=== PATIENT | male | born 1950 | race Caucasian/White ===

== ENCOUNTER → 2016-09-22 | Outpatient (CLI) | payer MEDICARE, OTHER ==
[~2016-09-22] VITALS: Ht 175.3 cm; Wt 70.3 kg
[~2016-09-22] MED LIST: ASPI1TAB PO; ATOR1TAB21 PO; CIAL5TAB PO; CICL8SOL TOP; CLAR10CA3 PO; CLEO1SOL TOP; CLON0.5T PO; ESZO1TAB3 PO; FISH100049 PO; LIDOCAINE 2% INJ 100 MG/5 ML SDV (FOR ANES.) As Ordered ONE; LUNE3TAB48 PO; MELO15TA4 PO; MULTCAP12 PO; NS 1,000 ML IV SCH; OMEP20CA3 PO; PROPOFOL 200 MG/20 ML VIAL As Ordered ONE; SUCR1TA PO; VITA100054 PO; ZANTTAB PO
--- NOTE | 2016-09-22 13:41 | ROOR ---
Patient Name: Rony Grimes Procedure Date: 09/22/2016 1:27 PM Date of : 1950 Age: 65 Room: [facility] Gender: Male Note Status: Finalized Procedure: Upper GI endoscopy + Biopsies Indications: Heartburn, Failure to respond to medical treatment Providers: Chance Benedict MD Referring MD: ZENAIDA ZARATE MD Requesting Provider: Medicines: Monitored Anesthesia Care Complications: No immediate complications. Procedure: Pre-Anesthesia Assessment: - The heart rate, respiratory rate, oxygen saturations, blood pressure, adequacy of pulmonary ventilation, and response to care were monitored throughout the procedure. The Endoscope was introduced through the mouth, and advanced to the second part of duodenum. The upper GI endoscopy was accomplished without difficulty. The patient tolerated the procedure well. Findings: The Z-line was variable and was found 40 cm from the incisors. Multiple biopsies were obtained with cold forceps for evaluation to rule out Asencio's Esophagus randomly at the gastroesophageal junction. A small hiatal hernia was present. Mucosal changes including ringed esophagus and longitudinal furrows were found in the middle third of the esophagus. Biopsies were taken with a cold forceps for histology. No other significant abnormalities were identified in a careful examination of the stomach. The exam of the duodenum was otherwise normal. Impression: - Z-line variable, 40 cm from the incisors. - Small hiatal hernia. - Esophageal mucosal changes suggestive of eosinophilic esophagitis. Biopsied. - Multiple biopsies were obtained at the gastroesophageal junction. - The examination was otherwise normal. Recommendation: - Await pathology results. - Discharge patient to home. - High fiber diet. - Follow an antireflux regimen. - Continue present medications. - Telephone GI clinic for pathology results in 1 week. - Return to referring physician. - The findings and recommendations were discussed with the patient's family. Chance Benedict MD Chance Benedict MD 09/22/2016 1:40:24 PM This report has been signed electronically. Number of Addenda: 0 Note Initiated On: 09/22/2016 1:27 PM Estimated Blood Loss: Estimated blood loss: none.
[2016-09-22 14:15] VITALS: BP 121/73
== END | disposition home or self-care (01) ==
LOC: M OPP 12:41
PROVIDERS: ATTEND Internal Medicine Gastroenterology
DX: K22.8 Other specified diseases of esophagus (principal); K44.9 Diaphragmatic hernia without obstruction or gangrene; K20.9 Esophagitis, unspecified; E78.5 Hyperlipidemia, unspecified; M19.90 Unspecified osteoarthritis, unspecified site; Z79.899 Other long term (current) drug therapy; Z79.82 Long term (current) use of aspirin

== ENCOUNTER → 2017-02-03 | Outpatient (REF) | payer MEDICARE, OTHER ==
[~2017-02-03] MED LIST changes: -LIDOCAINE 2% INJ 100 MG/5 ML SDV (FOR ANES.) As Ordered ONE; +LUNE3TAB36 PO; -LUNE3TAB48 PO; -NS 1,000 ML IV SCH; -PROPOFOL 200 MG/20 ML VIAL As Ordered ONE
[2017-02-03 13:23] LABS: ALBUMIN 4.2 GM/DL (3.2-5.2); ALKALINE PHOSPHATASE 85 U/L (45-117); ALT/SGPT 38 U/L (12-78); ANION GAP 8 MEQ/L (8-16); AST/SGOT 23 U/L (15-37); BILIRUBIN,TOTAL 0.7 MG/DL (0.2-1.0); BLOOD UREA NITROGEN 15 MG/DL (7-18); CALCIUM LEVEL 9.6 MG/DL (8.8-10.2); CARBON DIOXIDE LEVEL 31 MEQ/L (21-32); CHLORIDE LEVEL 103 MEQ/L (98-107); CHOLESTEROL LEVEL 157 MG/DL (<200); CREATININE FOR GFR 0.98 MG/DL (0.70-1.30); GLOMERULAR FILTRATION RATE > 60.0 (>49); GLUCOSE, FASTING 89 MG/DL (80-110); POTASSIUM SERUM 4.5 MEQ/L (3.5-5.1); SODIUM LEVEL 142 MEQ/L (136-145); TOTAL PROTEIN 7.7 GM/DL (6.4-8.2); TRIGLYCERIDES LEVEL 87 MG/DL (<150)
== END ==
LOC: M LABDRWAD 12:12
PROVIDERS: ATTEND Emergency Medicine
DX: E78.2 Mixed hyperlipidemia (principal)
CPT/HCPCS: 80053; 80061; G0103

== ENCOUNTER → 2018-01-20 | Outpatient (CLI) | payer MEDICARE, OTHER ==
[2018-01-20 12:36] LABS: BASO # 0.1 10^3/uL (0.0-0.2); BASO % 1.1 % (0.0-1.0); EOS # 0.5 10^3/uL (0.0-0.50); EOS % 8.8 % (0.0-3.0); HEMATOCRIT 38.9 % (42.0-52.0); HEMOGLOBIN 13.4 g/dl (13.5-17.5); IMMATURE GRANULOCYTE % 0.2 % (0-3.0); LYMPH # 1.9 10^3/uL (1.5-4.5); LYMPH % 34.4 % (24.0-44.0); MEAN CORPUSCULAR HEMOGLOBIN 31.6 pg (27.0-33.0); MEAN CORPUSCULAR HGB CONC 34.4 g/dl (32.0-36.5); MEAN CORPUSCULAR VOLUME 91.7 fl (80.0-96.0); MONO # 0.6 10^3/uL (0.0-0.8); NEUTROPHILS # 2.4 10^3/uL (1.8-7.7); NEUTROPHILS % 44.5 % (36.0-66.0); PLATELET COUNT, AUTOMATED 189 10^3/uL (150-450); RED BLOOD COUNT 4.24 10^6/uL (4.30-6.10); WHITE BLOOD COUNT 5.4 10^3/uL (4.0-10.0)
[2018-01-20 12:57] LABS: ALBUMIN 3.8 GM/DL (3.2-5.2); ALBUMIN/GLOBULIN RATIO 1.06 (1.00-1.93); ALKALINE PHOSPHATASE 110 U/L (45-117); ALT/SGPT 112 U/L (12-78); ANION GAP 6 MEQ/L (8-16); AST/SGOT 66 U/L (7-37); BILIRUBIN,TOTAL 0.7 MG/DL (0.2-1.0); BLOOD UREA NITROGEN 14 MG/DL (7-18); CALCIUM LEVEL 9.2 MG/DL (8.8-10.2); CARBON DIOXIDE LEVEL 32 MEQ/L (21-32); CHLORIDE LEVEL 105 MEQ/L (98-107); CHOLESTEROL LEVEL 146 MG/DL (<200); CHOLESTEROL RISK RATIO 3.173 (<5); CREATININE FOR GFR 1.06 MG/DL (0.70-1.30); GLOMERULAR FILTRATION RATE > 60.0 (>49); GLUCOSE, FASTING 84 MG/DL (70-100); HDL CHOLESTEROL 46 MG/DL (>40); NON-HDL-C 100 MG/DL; POTASSIUM SERUM 4.5 MEQ/L (3.5-5.1); SODIUM LEVEL 143 MEQ/L (136-145); TOTAL PROTEIN 7.4 GM/DL (6.4-8.2); TRIGLYCERIDES LEVEL 90 MG/DL (<150)
== END ==
LOC: M ADAMS 10:54
DX: E78.2 Mixed hyperlipidemia (principal); K22.70 Barrett's esophagus without dysplasia; Z12.5 Encounter for screening for malignant neoplasm of prostate
CPT/HCPCS: 80053

== ENCOUNTER → 2018-02-09 | Outpatient (REF) | payer MEDICARE, OTHER ==
[2018-02-09 20:12] LABS: TOTAL 25(OH) VITAMIN D 51.2 NG/ML (30.0-100.0)
== END ==
LOC: M LAB REF 10:27
DX: Z79.818 Long term (current) use of other agents affecting estrogen receptors and estrogen levels (principal)
CPT/HCPCS: 82306

== ENCOUNTER → 2019-05-23 | Outpatient (REF) | payer MEDICARE, OTHER ==
[~2019-05-23] MED LIST changes: -ASPI1TAB PO; +ASPI81TA26 PO; -CLON0.5T PO; +CLON0.5T8 PO; -ESZO1TAB3 PO; +ESZO1TAB6 PO; +MELO15TA28 PO; -MELO15TA4 PO; -OMEP20CA3 PO; +OMEP20CA4 PO; +ZANT150T40 PO; -ZANTTAB PO
[2019-05-23 12:49] LABS: ALBUMIN 3.7 GM/DL (3.2-5.2); BILIRUBIN,DIRECT 0.1 MG/DL (0.0-0.2); BILIRUBIN,TOTAL 0.7 MG/DL (0.2-1.0); TOTAL PROTEIN 7.5 GM/DL (6.4-8.2)
== END ==
LOC: M LABDRWAD 12:26
PROVIDERS: ATTEND Podiatrist
DX: Z51.81 Encounter for therapeutic drug level monitoring (principal)

== ENCOUNTER → 2019-06-08 | Outpatient (REF) | payer MEDICARE, OTHER ==
[~2019-06-08] MED LIST changes: +CLON0.5T2 PO; -CLON0.5T8 PO
[2019-06-08 13:21] LABS: HEMATOCRIT 38.6 % (42.0-52.0); HEMOGLOBIN 13.5 g/dl (13.5-17.5); MEAN CORPUSCULAR HEMOGLOBIN 33.6 pg (27.0-33.0); PLATELET COUNT, AUTOMATED 196 10^3/uL (150-450); RED BLOOD COUNT 4.02 10^6/uL (4.30-6.10); WHITE BLOOD COUNT 5.9 10^3/uL (4.0-10.0)
[2019-06-08 13:52] LABS: ALBUMIN 3.8 GM/DL (3.2-5.2); ALT/SGPT 29 U/L (12-78); BILIRUBIN,TOTAL 0.3 MG/DL (0.2-1.0); BLOOD UREA NITROGEN 16 MG/DL (7-18); CALCIUM LEVEL 8.7 MG/DL (8.8-10.2); CARBON DIOXIDE LEVEL 30 MEQ/L (21-32); CHLORIDE LEVEL 110 MEQ/L (98-107); CHOLESTEROL LEVEL 154 MG/DL (<200); CHOLESTEROL RISK RATIO 3.276 (<5); CREATININE FOR GFR 1.07 MG/DL (0.70-1.30); FREE T4 0.82 NG/DL (0.76-1.46); GLOMERULAR FILTRATION RATE > 60.0 (>49); GLUCOSE, FASTING 91 MG/DL (70-100); HDL CHOLESTEROL 47 MG/DL (>40); LDL CHOLESTEROL 88 MG/DL (<100); MAGNESIUM LEVEL 2.2 MG/DL (1.8-2.4); NON-HDL-C 107 MG/DL; POTASSIUM SERUM 4.7 MEQ/L (3.5-5.1); SODIUM LEVEL 144 MEQ/L (136-145); TRIGLYCERIDES LEVEL 96 MG/DL (<150)
== END ==
LOC: M SFHCADAM 08:02
PROVIDERS: ATTEND Family Medicine
DX: K22.70 Barrett's esophagus without dysplasia (principal); E78.5 Hyperlipidemia, unspecified; G25.81 Restless legs syndrome; Z12.5 Encounter for screening for malignant neoplasm of prostate
CPT/HCPCS: 80053; 80061; 83735; 84439; 84443; 85027; G0103

== ENCOUNTER → 2019-07-03 | Outpatient (CLI) | payer MEDICARE, OTHER ==
[~2019-07-03] MED LIST changes: +OMEP-172 PO; -OMEP20CA4 PO
[2019-07-03 17:23] LABS: ALBUMIN 3.8 GM/DL (3.2-5.2); BILIRUBIN,DIRECT 0.1 MG/DL (0.0-0.2); BILIRUBIN,TOTAL 0.5 MG/DL (0.2-1.0); TOTAL PROTEIN 7.5 GM/DL (6.4-8.2)
== END ==
LOC: M ADAMS 08:50
PROVIDERS: ATTEND Podiatrist
DX: Z51.81 Encounter for therapeutic drug level monitoring (principal)

== ENCOUNTER → 2019-07-04 | Outpatient (CLI) | payer MEDICARE, OTHER ==
--- NOTE | 2019-07-05 06:40 | ECHO ---
DATE OF PROCEDURE: 07/04/2019 Date of : 1950 Age: 68 REFERRING PHYSICIAN: Keyon Palacios MD REASON FOR ECHOCARDIOGRAM: Heart murmur. PATIENT LOCATION: Outpatient. 2D MEASUREMENTS: IVS: 1.4 cm LV: 3.8 cm LVPW: 1.2 cm LA: 3.2 cm Aorta: 3.3 cm DOPPLER MEASUREMENTS: Peak velocity across the aortic valve: 1.6 m/s Peak velocity across the LVOT: 0.9 m/s Mitral E: 0.90, Mitral A: 0.87 with a ratio of 1.0 Maximum tricuspid valve velocity: 2.4 m/s 2D COMMENTS: 1. Normal left ventricular size with probably mildly increased left ventricular wall thickness. Left ventricular systolic function is normal, estimated at 65-70%. 2. Normal left atrium. The right atrium appeared to be borderline enlarged in limited views. Normal right ventricle. 3. The atrial septum appeared to be normal without evidence of defect or shunt. 4. Normal aortic root. 5. Trace pericardial effusion noted, no evidence of cardiac tamponade. 6. Mildly calcified aortic valve with normal leaflet excursion. Normal mitral valve, tricuspid valve, and pulmonic valve. The proximal pulmonary artery branches were not well visualized. 7. The inferior vena cava was not well visualized. DOPPLER: Doppler detects trace aortic regurgitation, mild mitral regurgitation and mild tricuspid regurgitation. The calculated pulmonary artery systolic pressure varies between 30-40 mmHg. Assessment of the left ventricular diastolic function was not quite conclusive, may be normal. IMPRESSION 1. Normal global left ventricular systolic function with probably mild concentric left ventricular hypertrophy. Assessment of the left ventricular diastolic function was not quite conclusive. 2. Aortic valve sclerosis with trace aortic regurgitation but no aortic stenosis. 3. Mitral annulus calcification with mild mitral regurgitation. 4. Mild tricuspid regurgitation with probably mild pulmonary hypertension. 5. A trace pericardial effusion was noted, no evidence of cardiac tamponade. [facility]
== END ==
LOC: M CARPUL 08:03
PROVIDERS: ATTEND Family Medicine
DX: R01.1 Cardiac murmur, unspecified (principal)

== ENCOUNTER → 2020-01-16 | Outpatient (REF) | payer MEDICARE, OTHER ==
[~2020-01-16] MED LIST changes: +AMBI10TA PO; +FAMO1TAB25 PO; +MELA5CAP2 PO; +NORC1TAB7 PO; -OMEP-172 PO; +OMEP1CAP73 PO
[2020-01-16 13:35] LABS: BASO # 0.1 10^3/uL (0.0-0.2); EOS # 0.5 10^3/uL (0.0-0.5); EOS % 6.9 % (0.0-3.0); HEMATOCRIT 42.6 % (42.0-52.0); LYMPH % 28.8 % (24.0-44.0); MEAN CORPUSCULAR HEMOGLOBIN 31.5 pg (27.0-33.0); MEAN CORPUSCULAR HGB CONC 32.9 g/dl (32.0-36.5); MEAN CORPUSCULAR VOLUME 95.9 fl (80.0-96.0); MONO # 0.7 10^3/uL (0.0-0.8); MONO % 9.3 % (0.0-5.0); NEUTROPHILS # 3.8 10^3/uL (1.5-8.5); NEUTROPHILS % 53.7 % (36.0-66.0); PLATELET COUNT, AUTOMATED 232 10^3/uL (150-450); RED BLOOD COUNT 4.44 10^6/uL (4.30-6.10); WHITE BLOOD COUNT 7.1 10^3/uL (4.0-10.0)
[2020-01-16 14:42] LABS: ALT/SGPT 192 U/L (12-78); BILIRUBIN,TOTAL 0.8 MG/DL (0.2-1.0); BLOOD UREA NITROGEN 14 MG/DL (7-18); CALCIUM LEVEL 9.5 MG/DL (8.8-10.2); CARBON DIOXIDE LEVEL 32 MEQ/L (21-32); CHLORIDE LEVEL 104 MEQ/L (98-107); CREATININE FOR GFR 1.03 MG/DL (0.70-1.30); FREE T4 0.78 NG/DL (0.76-1.46); GLOMERULAR FILTRATION RATE > 60.0 (>42); GLUCOSE, FASTING 81 MG/DL (70-100); POTASSIUM SERUM 4.8 MEQ/L (3.5-5.1); SODIUM LEVEL 140 MEQ/L (136-145); TOTAL PROTEIN 7.8 GM/DL (6.4-8.2)
== END ==
LOC: M SFHCADAM 10:19
PROVIDERS: ATTEND Family Medicine
DX: R68.83 Chills (without fever) (principal)
CPT/HCPCS: 80053; 84439; 84443; 85025; G0463

== ENCOUNTER → 2020-01-17 | Outpatient (REF) | payer MEDICARE, OTHER ==
[2020-01-18 11:26] LABS: HEPATITIS B SURFACE ANTIBODY POSITIVE (POSITIVE)
[2020-01-18 17:32] LABS: ANTI-SMOOTH MUSCLE ANTIBODY 14 Units (0-19); LIVER-KIDNEY MICROSOMAL ABY <20.1 Units (0.0-20.0)
== END ==
LOC: M SFHCADAM 09:33
PROVIDERS: ATTEND Family Medicine
DX: R79.89 Other specified abnormal findings of blood chemistry (principal); Z79.82 Long term (current) use of aspirin; Z79.899 Other long term (current) drug therapy

== ENCOUNTER → 2020-02-02 | Outpatient (CLI) | payer MEDICARE, OTHER ==
[2020-03-02 11:10] LABS: HEMATOCRIT 37.4 % (42.0-52.0); HEMOGLOBIN 13.6 g/dl (13.5-17.5); MEAN CORPUSCULAR HEMOGLOBIN 35.6 pg (27.0-33.0); MEAN CORPUSCULAR HGB CONC 36.4 g/dl (32.0-36.5); MEAN CORPUSCULAR VOLUME 97.9 fl (80.0-96.0); PLATELET COUNT, AUTOMATED 259 10^3/uL (150-450); RED BLOOD COUNT 3.82 10^6/uL (4.30-6.10); WHITE BLOOD COUNT 6.3 10^3/uL (4.0-10.0)
[2020-03-11 10:55] LABS: ALBUMIN 3.9 GM/DL (3.2-5.2); ALT/SGPT 278 U/L (12-78); BILIRUBIN,TOTAL 1.5 MG/DL (0.2-1.0); BLOOD UREA NITROGEN 17 MG/DL (7-18); CALCIUM LEVEL 9.5 MG/DL (8.8-10.2); CARBON DIOXIDE LEVEL 32 MEQ/L (21-32); CHLORIDE LEVEL 103 MEQ/L (98-107); CREATININE FOR GFR 1.03 MG/DL (0.70-1.30); GLOMERULAR FILTRATION RATE > 60.0 (>42); GLUCOSE, FASTING 81 MG/DL (70-100); POTASSIUM SERUM 4.5 MEQ/L (3.5-5.1); SODIUM LEVEL 139 MEQ/L (136-145); TOTAL PROTEIN 7.9 GM/DL (6.4-8.2)
== END ==
LOC: M LAB 16:30 → M RAD 16:30
PROVIDERS: ATTEND Family Medicine
DX: I25.10 Atherosclerotic heart disease of native coronary artery without angina pectoris (principal); K80.50 Calculus of bile duct without cholangitis or cholecystitis without obstruction; K80.20 Calculus of gallbladder without cholecystitis without obstruction; R94.5 Abnormal results of liver function studies; M51.36 Other intervertebral disc degeneration, lumbar region; M51.37 Other intervertebral disc degeneration, lumbosacral region
CPT/HCPCS: 36415; 74176; 80053; 85027; G0463

== ENCOUNTER 2020-02-06 16:00 | Inpatient (IN) | payer MEDICARE, OTHER ==
[~2020-02-06 16:00] MED LIST changes: -AMBI10TA PO; -FAMO1TAB25 PO; -MELA5CAP2 PO; -NORC1TAB7 PO
[2020-02-06] MEDS ORDERED: KETOROLAC 30 MG/ML 1ML VIAL As Ordered ONE (18:30)
[2020-02-06] MEDS ORDERED: LORazepam 2 MG/ML VIAL ONE (23:04)
[2020-02-06] MEDS ORDERED: LORazepam 2 MG/ML VIAL As Ordered ONE (23:04)
[2020-02-07] MEDS ORDERED: SUCRALFATE 1 GM TAB ONE ×2 (08:06→22:26)
[2020-02-07] MEDS ORDERED: ENOXAPARIN 40MG/0.4ML SYRINGE (J1650 PER 10MG) ONE (08:06)
[2020-02-07] MEDS ORDERED: LORazepam 2 MG/ML VIAL ONE (15:31)
[2020-02-07] MEDS ORDERED: NALOXONE INJ 0.4MG/1ML VIAL (J2310 PER 1MG) ONE (16:34)
[2020-02-07] MEDS ORDERED: SUCRALFATE 1 GM TAB As Ordered ONE (22:26)
[2020-02-08] MEDS ORDERED: SUCRALFATE 1 GM TAB As Ordered ONE ×2 (09:33→20:04)
[2020-02-08] MEDS ORDERED: SUCRALFATE 1 GM TAB ONE ×2 (09:33→20:04)
[2020-02-08] MEDS ORDERED: ROCURONIUM BROMIDE 50 MG/5 ML VIAL As Ordered ONE (13:54)
[2020-02-08] MEDS ORDERED: MIDAZOLAM INJ 2MG/2ML VIAL (J2250 PER 1MG) As Ordered ONE (13:54)
[2020-02-08] MEDS ORDERED: propofoL 200 MG/20 ML VIAL As Ordered ONE (13:54)
[2020-02-08] MEDS ORDERED: fentaNYL 100 MCG/2 ML INJECTION (J3010) As Ordered ONE ×2 (13:54→15:58)
[2020-02-08] MEDS ORDERED: METOCLOPRAMIDE INJ 10MG/2ML VIAL (J2765 PER 1) As Ordered ONE (13:54)
[2020-02-08] MEDS ORDERED: ONDANSETRON 4MG/2ML VIAL As Ordered ONE (13:54)
[2020-02-08] MEDS ORDERED: LIDOCAINE 2% 100MG/5ML SDV (FOR ANES.) As Ordered ONE (13:54)
[2020-02-08] MEDS ORDERED: ISOVUE-300 61% 50ML VIAL As Ordered ONE ×3 (14:55→16:30)
[2020-02-08] MEDS ORDERED: PHENYLephrine HCL 500 MCG/5 ML (100MCG/ML) SYRINGE (J2370) As Ordered ONE (16:28)
[2020-02-08] MEDS ORDERED: MORPHINE 2 MG/ML 1ML VIAL (J2270) As Ordered ONE (22:06)
[2020-02-08] MEDS ORDERED: MORPHINE 2 MG/ML 1ML VIAL (J2270) ONE (22:06)
[2020-02-09] MEDS ORDERED: MORPHINE 2 MG/ML 1ML VIAL (J2270) ONE (03:52)
[2020-02-09] MEDS ORDERED: MORPHINE 2 MG/ML 1ML VIAL (J2270) As Ordered ONE (03:52)
[2020-02-09] MEDS ORDERED: ATORVASTATIN 10 MG TAB ONE (10:07)
[2020-02-09] MEDS ORDERED: SUCRALFATE 1 GM TAB ONE ×2 (10:07→20:07)
[2020-02-09] MEDS ORDERED: SUCRALFATE 1 GM TAB As Ordered ONE ×2 (10:07→20:07)
[2020-02-09] MEDS ORDERED: MULTIVITAMINS/MINERALS THERAP 1 TAB As Ordered ONE (10:07)
[2020-02-09] MEDS ORDERED: OMEPRAZOLE 20 MG CAP As Ordered ONE ×2 (10:07→20:07)
[2020-02-09] MEDS ORDERED: ATORVASTATIN 10 MG TAB As Ordered ONE (10:07)
[2020-02-09] MEDS ORDERED: MULTIVITAMINS/MINERALS THERAP 1 TAB ONE (10:07)
[2020-02-09] MEDS ORDERED: OMEPRAZOLE 20 MG CAP ONE ×2 (10:07→20:07)
[2020-02-09] MEDS ORDERED: LORATADINE 10 MG TAB As Ordered ONE (10:07)
[2020-02-09] MEDS ORDERED: traMADol 50 MG TAB As Ordered ONE ×2 (11:18→23:32)
[2020-02-09] MEDS ORDERED: traMADol 50 MG TAB ONE ×3 (11:18→23:32)
[2020-02-09] MEDS ORDERED: SIMETHICONE 80 MG CHEW TAB ONE ×2 (15:31→20:07)
[2020-02-09] MEDS ORDERED: SIMETHICONE 80 MG CHEW TAB As Ordered ONE ×2 (15:31→20:07)
[2020-02-10] MEDS ORDERED: traMADol 50 MG TAB As Ordered ONE (05:30)
[2020-02-10] MEDS ORDERED: traMADol 50 MG TAB ONE (05:30)
[2020-02-10] MEDS ORDERED: MULTIVITAMINS/MINERALS THERAP 1 TAB As Ordered ONE (10:12)
[2020-02-10] MEDS ORDERED: MULTIVITAMINS/MINERALS THERAP 1 TAB ONE (10:12)
[2020-02-10] MEDS ORDERED: LORATADINE 10 MG TAB As Ordered ONE (10:13)
[2020-02-10] MEDS ORDERED: OMEPRAZOLE 20 MG CAP As Ordered ONE (10:13)
[2020-02-10] MEDS ORDERED: OMEPRAZOLE 20 MG CAP ONE (10:13)
[2020-02-10] MEDS ORDERED: SUCRALFATE 1 GM TAB As Ordered ONE (10:13)
[2020-02-10] MEDS ORDERED: SUCRALFATE 1 GM TAB ONE (10:13)
[2020-02-10] MEDS ORDERED: ATORVASTATIN 10 MG TAB As Ordered ONE (10:13)
[2020-03-20] MEDS ORDERED: FAMO1TAB25 PO (09:58)
[2020-03-20] MEDS ORDERED: MELA5CAP2 PO (09:58)
[2020-03-20] MEDS ORDERED: AMBI10TA PO (09:58)
[2020-03-27 14:26] LABS: BASO % 0.4 % (0.0-1.0); EOS # 0.3 10^3/uL (0.0-0.5); EOS % 2.8 % (0.0-3.0); HEMATOCRIT 38.1 % (42.0-52.0); HEMOGLOBIN 12.6 g/dl (13.5-17.5); INR 1.18; LYMPH # 1.8 10^3/uL (1.5-5.0); LYMPH % 15.8 % (24.0-44.0); MEAN CORPUSCULAR HEMOGLOBIN 30.4 pg (27.0-33.0); MEAN CORPUSCULAR HGB CONC 33.1 g/dl (32.0-36.5); MONO # 0.9 10^3/uL (0.0-0.8); MONO % 8.4 % (0.0-5.0); NEUTROPHILS # 8.1 10^3/uL (1.5-8.5); NEUTROPHILS % 72.2 % (36.0-66.0); PARTIAL THROMBOPLASTIN TIME 31.2 SECONDS (24.2-38.5); PLATELET COUNT, AUTOMATED 257 10^3/uL (150-450); PROTHROMBIN TIME 15.3 SECONDS (12.5-14.3); RED BLOOD COUNT 4.14 10^6/uL (4.30-6.10); WHITE BLOOD COUNT 11.3 10^3/uL (4.0-10.0)
[2020-03-29 01:12] LABS: INR 0.99; PROTHROMBIN TIME 13.2 SECONDS (12.5-14.3)
[2020-03-29 01:30] LABS: MEAN CORPUSCULAR HEMOGLOBIN 30.6 pg (27.0-33.0); MEAN CORPUSCULAR HGB CONC 32.6 g/dl (32.0-36.5); MEAN CORPUSCULAR VOLUME 93.9 fl (80.0-96.0); PLATELET COUNT, AUTOMATED 271 10^3/uL (150-450); WHITE BLOOD COUNT 8.8 10^3/uL (4.0-10.0)
[2020-03-29 02:25] LABS: APPEARANCE, URINE CLEAR (CLEAR); BACTERIA, URINE AUTO NEGATIVE (NEGATIVE); BILIRUBIN, URINE AUTO NEGATIVE (NEGATIVE); BLOOD, URINE BLOOD NEGATIVE (NEGATIVE); COLOR, URINE AMBER (YELLOW); GLUCOSE, URINE (UA) AUTO NEGATIVE (NEGATIVE); KETONE, URINE AUTO NEGATIVE (NEGATIVE); LEUKOCYTE ESTERASE, URINE AUTO NEGATIVE (NEGATIVE); MUCUS, URINE SMALL (NEGATIVE); NITRITE, URINE AUTO NEGATIVE (NEGATIVE); PROTEIN, URINE AUTO NEGATIVE (NEGATIVE); RBC, URINE AUTO 6 /HPF (0-3); SQUAMOUS EPITHELIAL CELL UR AU 0 /HPF (0-6); WBC, URINE AUTO 0 /HPF (0-3)
--- NOTE | 2020-03-30 14:04 | REP ---
ERCP- 168 VIEWS: HISTORY: Cholodocholithiasis. COMPARISON: None. 21 minutes 9 seconds of fluoroscopy time is reported. FINDINGS: 168 last image hold fluoroscopically obtained spot radiographs document endoscopic cannulation, contrast injection, guidewire and basket and balloon catheter manipulation and stenting of the common bile duct. Initial images with contrast demonstrates a filling defect in the distal choledochus, consistent with cholodocholithiasis. MTDD
[2020-04-07 07:23] LABS: INR 1.14; PARTIAL THROMBOPLASTIN TIME 33.2 SECONDS (24.2-38.5); PROTHROMBIN TIME 14.9 SECONDS (12.5-14.3)
[2020-04-07 09:06] LABS: BASO % 0.7 % (0.0-1.0); EOS # 0.4 10^3/uL (0.0-0.5); EOS % 6.7 % (0.0-3.0); HEMATOCRIT 37.1 % (42.0-52.0); HEMOGLOBIN 13.1 g/dl (13.5-17.5); LYMPH # 1.5 10^3/uL (1.5-5.0); LYMPH % 25.2 % (24.0-44.0); MEAN CORPUSCULAR HEMOGLOBIN 35.1 pg (27.0-33.0); MEAN CORPUSCULAR HGB CONC 35.3 g/dl (32.0-36.5); MEAN CORPUSCULAR VOLUME 99.5 fl (80.0-96.0); MONO # 0.7 10^3/uL (0.0-0.8); MONO % 11.4 % (0.0-5.0); NEUTROPHILS # 3.2 10^3/uL (1.5-8.5); NEUTROPHILS % 55.7 % (36.0-66.0); PLATELET COUNT, AUTOMATED 243 10^3/uL (150-450); RED BLOOD COUNT 3.73 10^6/uL (4.30-6.10); WHITE BLOOD COUNT 5.8 10^3/uL (4.0-10.0)
[2020-04-15 15:17] LABS: HEMATOCRIT 38.4 % (42.0-52.0); HEMOGLOBIN 13.2 g/dl (13.5-17.5); MEAN CORPUSCULAR HEMOGLOBIN 33.1 pg (27.0-33.0); MEAN CORPUSCULAR HGB CONC 34.4 g/dl (32.0-36.5); MEAN CORPUSCULAR VOLUME 96.2 fl (80.0-96.0); PLATELET COUNT, AUTOMATED 239 10^3/uL (150-450); RED BLOOD COUNT 3.99 10^6/uL (4.30-6.10); WHITE BLOOD COUNT 7.4 10^3/uL (4.0-10.0)
[2020-04-15 15:18] LABS: INR 1.06; PARTIAL THROMBOPLASTIN TIME 30.2 SECONDS (24.2-38.5)
[2020-04-16 01:20] LABS: ALBUMIN 4.1 GM/DL (3.2-5.2); ALT/SGPT 275 U/L (12-78); AMYLASE 97 U/L (25-115); BILIRUBIN,TOTAL 2.1 MG/DL (0.2-1.0); BLOOD UREA NITROGEN 13 MG/DL (7-18); CALCIUM LEVEL 9.7 MG/DL (8.8-10.2); CARBON DIOXIDE LEVEL 29 MEQ/L (21-32); CHLORIDE LEVEL 107 MEQ/L (98-107); GLOMERULAR FILTRATION RATE > 60.0 (>42); GLUCOSE, FASTING 95 MG/DL (70-100); LIPASE 313 U/L (73-393); POTASSIUM SERUM 4.1 MEQ/L (3.5-5.1); SODIUM LEVEL 141 MEQ/L (136-145); TOTAL PROTEIN 8.1 GM/DL (6.4-8.2)
[2020-04-30 10:03] LABS: ALBUMIN 3.1 GM/DL (3.2-5.2); ALT/SGPT 109 U/L (12-78); BLOOD UREA NITROGEN 16 MG/DL (7-18); CALCIUM LEVEL 8.7 MG/DL (8.8-10.2); CARBON DIOXIDE LEVEL 31 MEQ/L (21-32); CHLORIDE LEVEL 105 MEQ/L (98-107); CREATININE FOR GFR 0.81 MG/DL (0.70-1.30); GLOMERULAR FILTRATION RATE > 60.0 (>42); GLUCOSE, FASTING 91 MG/DL (70-100); POTASSIUM SERUM 4.1 MEQ/L (3.5-5.1); SODIUM LEVEL 137 MEQ/L (136-145); TOTAL PROTEIN 6.6 GM/DL (6.4-8.2)
[2020-05-01 11:08] LABS: ALBUMIN 3.6 GM/DL (3.2-5.2); ALT/SGPT 251 U/L (12-78); BILIRUBIN,DIRECT 2.2 MG/DL (0.0-0.2); BILIRUBIN,TOTAL 3.3 MG/DL (0.2-1.0); BLOOD UREA NITROGEN 11 MG/DL (7-18); CARBON DIOXIDE LEVEL 31 MEQ/L (21-32); CHLORIDE LEVEL 105 MEQ/L (98-107); CREATININE FOR GFR 0.98 MG/DL (0.70-1.30); GLOMERULAR FILTRATION RATE > 60.0 (>42); GLUCOSE, FASTING 95 MG/DL (70-100); HEPATITIS A ANTIBODY IGM NEGATIVE (NEGATIVE); HEPATITIS B CORE ANTIBODY IGM NEGATIVE (NEGATIVE); HEPATITIS B SURFACE ANTIGEN NEGATIVE (NEGATIVE); HEPATITIS C VIRUS ABY INDEX 0.2 INDEX (<0.8); POTASSIUM SERUM 4.1 MEQ/L (3.5-5.1); SODIUM LEVEL 138 MEQ/L (136-145); TOTAL PROTEIN 7.5 GM/DL (6.4-8.2)
[2020-05-02 16:19] LABS: ALBUMIN 3.3 GM/DL (3.2-5.2); ALT/SGPT 188 U/L (12-78); BILIRUBIN,DIRECT 0.6 MG/DL (0.0-0.2); BILIRUBIN,TOTAL 1.5 MG/DL (0.2-1.0); BLOOD UREA NITROGEN 9 MG/DL (7-18); CALCIUM LEVEL 8.9 MG/DL (8.8-10.2); CARBON DIOXIDE LEVEL 30 MEQ/L (21-32); CHLORIDE LEVEL 107 MEQ/L (98-107); CREATININE FOR GFR 0.77 MG/DL (0.70-1.30); GLOMERULAR FILTRATION RATE > 60.0 (>42); GLUCOSE, FASTING 74 MG/DL (70-100); POTASSIUM SERUM 4.1 MEQ/L (3.5-5.1); SODIUM LEVEL 139 MEQ/L (136-145); TOTAL PROTEIN 7.1 GM/DL (6.4-8.2)
== END 2020-02-10 10:10 | disposition home or self-care (01) | DRG 446 ==
LOC: M ED 16:00 → M MS5PR 20:20
PROVIDERS: ADMIT Internal Medicine; ATTEND Internal Medicine
PROC: 0FC98ZZ Extirpation of Matter from Common Bile Duct, Via Natural or Artificial Opening Endoscopic (ICD-10-PCS; principal; 2020-02-08)
DX: K80.63 Calculus of gallbladder and bile duct with acute cholecystitis with obstruction (principal); K21.9 Gastro-esophageal reflux disease without esophagitis; N40.0 Benign prostatic hyperplasia without lower urinary tract symptoms; E78.5 Hyperlipidemia, unspecified; Z79.899 Other long term (current) drug therapy; F41.9 Anxiety disorder, unspecified; G47.00 Insomnia, unspecified

== ENCOUNTER → 2020-03-24 | Outpatient (CLI) | payer MEDICARE, OTHER ==
[~2020-03-24] MED LIST changes: +AMBI10TA PO; +FAMO1TAB25 PO; +MELA5CAP2 PO; +NORC1TAB7 PO
--- NOTE | 2020-03-24 16:47 | ECGEPIP ---
[facility] Test Date: 2020-03-24 Pat Name: ZORA COREAS Department: Room: - Gender: Male [employer] Technician: TERRI : 1950 Requested By: Alex Acosta Order Number: [id number] Reading MD: Claudio Dong Measurements Intervals Tyler Rate: 64 P: 60 HI: 181 QRS: -22 QRSD: 108 T: 0 QT: 386 QTc: 401 Interpretive Statements SINUS RHYTHM BORDERLINE LEFT AXIS DEVIATION POSSIBLE RIGHT VENTRICULAR CONDUCTION DELAY Comparison tracing not on file Electronically Signed on 03-24-2020 16:46:59 EDT by Claudio Dong
== END ==
LOC: M EKG 09:33
PROVIDERS: ATTEND Anesthesiology
DX: Z01.818 Encounter for other preprocedural examination (principal)

== ENCOUNTER → 2020-03-29 | Outpatient (CLI) | payer MEDICARE, OTHER | LOC: M LABSMTC 09:46 | PROVIDERS: ATTEND Anesthesiology | DX: Z01.812 Encounter for preprocedural laboratory examination (principal); Z20.828 Contact with and (suspected) exposure to other viral communicable diseases | CPT/HCPCS: C9803; U0003 ==

== ENCOUNTER 2020-04-03 06:12 | Day surgery (SDC) | payer MEDICARE, OTHER ==
[~2020-04-03] VITALS: Ht 175.3 cm; Wt 72.6 kg
[~2020-04-03 06:12] MED LIST changes: -NORC1TAB7 PO
[2020-04-03] MEDS ORDERED: MIDAZOLAM INJ 2MG/2ML VIAL (J2250 PER 1MG) As Ordered ONE (06:57)
[2020-04-03] MEDS ORDERED: propofoL 200 MG/20 ML VIAL As Ordered ONE (07:00)
[2020-04-03] MEDS ORDERED: LR 1,000 ML IV ONE (07:00)
[2020-04-03] MEDS ORDERED: fentaNYL 100 MCG/2 ML INJECTION (J3010) As Ordered ONE (07:01)
[2020-04-03] MEDS ORDERED: LIDOCAINE 2% 100MG/5ML SDV (FOR ANES.) As Ordered ONE (07:02)
[2020-04-03] MEDS ORDERED: ROCURONIUM BROMIDE 50 MG/5 ML VIAL As Ordered ONE (07:04)
[2020-04-03] MEDS ORDERED: BUPIVACAINE HCL 0.25% 30ML VIAL As Ordered ONE (07:10)
[2020-04-03] MEDS ORDERED: dexameTHASONE 4 MG/ML 1ML VIAL (J1100 PER 1MG) As Ordered ONE (07:12)
[2020-04-03] MEDS ORDERED: SUGAMMADEX SODIUM 500 MG/5 ML VIAL (BRIDION) As Ordered ONE (07:13)
[2020-04-03] MEDS ORDERED: ONDANSETRON 4MG/2ML VIAL As Ordered ONE (07:13)
[2020-04-03] MEDS ORDERED: METOCLOPRAMIDE INJ 10MG/2ML VIAL (J2765 PER 1) As Ordered ONE (07:13)
[2020-04-03] MEDS ORDERED: ACETAMINOPHEN 1000MG 100ML IV BTL (OFIRMEV) (J0131 PER 10MG) As Ordered ONE (08:45)
[2020-04-03] MEDS ORDERED: HYDROmorphone HCL 2 MG/ML 1ML VIAL (J1170) As Ordered ONE (09:04)
[2020-04-03] MEDS ORDERED: NORC1TAB7 PO (09:35)
[2020-04-03] MEDS ORDERED: ONDANSETRON 4MG/2ML VIAL IV PRN (10:00)
[2020-04-03] MEDS ORDERED: MEPERIDINE INJ 25 MG/ML VIAL (J2175) IV PRN (10:00)
[2020-04-03] MEDS ORDERED: LR 1,000 ML IV SCH (10:00)
[2020-04-03] MEDS ORDERED: fentaNYL 100 MCG/2 ML INJECTION (J3010) IV PRN (10:00)
[2020-04-03] MEDS ORDERED: METOCLOPRAMIDE INJ 10MG/2ML VIAL (J2765 PER 1) IV PRN (10:00)
[2020-04-03] MEDS: oxyCODONE 5MG TAB PO PRN ×2 (10:03→10:45)
[2020-04-03] MEDS ORDERED: IBUPROFEN 400 MG TAB PO PRN (11:00)
[2020-04-03] MEDS ORDERED: NORCO, ANEXSIA 5/325MG TABLET (HYDROcodone/ACETAMINOPHEN) PO PRN (11:00)
[2020-04-03] MEDS ORDERED: ACETAMINOPHEN TAB 650MG DOSE (2X325MG) PO PRN (11:00)
[2020-04-03 11:45] VITALS: BP 142/75
--- NOTE | 2020-04-10 14:41 | RO ---
DATE OF OPERATION: 04/03/2020 PREOPERATIVE DIAGNOSIS: Cholelithiasis with recent choledocholithiasis. POSTOPERATIVE DIAGNOSIS: Cholelithiasis with recent choledocholithiasis. PROCEDURE PERFORMED: Robotic-assisted laparoscopic cholecystectomy. SURGEON: Eric Palafox MD HEALTH COMMISSIONER: HONG Gaona (Garry assistance was necessary for management of the da Jason Xi with placement of trocars, exchange of instruments, passage of the specimen retrieval bag and closure of the incisions). ANESTHESIA: General. INDICATIONS FOR THE PROCEDURE: The patient is a 69-year-old man who has recent history of elevated liver function tests which led to diagnosis of choledocholithiasis. He underwent ERCP with placement of a stent. He is now for a laparoscopic cholecystectomy for gallstones. OPERATIVE PROCEDURE: The patient was brought to the operating room and placed on the table in supine position. He was placed under general anesthesia. The patients abdomen was prepped and draped in sterile fashion. 0.25% Marcaine was infiltrated at the trocar sites as needed. A short transverse incision was made in the left upper quadrant. A Veress needle was inserted and after positive hanging drop test the abdomen was inflated with CO2 gas. An 8 mm port was placed over a 5 mm scope and advanced through the abdominal wall without difficulty. Initial examination showed normal appearing anterior wall of the stomach. The liver appeared normal. The gallbladder appeared somewhat thick walled and perhaps mildly dilated. Visualized portions of the small and large bowel were normal. A second 8 mm port was placed just above the umbilicus and two additional 8 mm ports were placed in the right lower quadrant. The da Jason Xi patient cart was brought into position and the endoscope port was docked to the supraumbilical site. Targeting took place on the region of the gallbladder and the other robotic arms were then docked to the appropriate ports. The patient had been tilted to slight reverse Trendelenburg position and rolled ever so slightly to the left just before docking. A right angle hook was placed in the left upper quadrant and fenestrated bipolar and grasping retractor were placed in the right lower quadrant. I then moved to the control console to begin the robotic portion of the procedure. The gallbladder was grasped and elevated. There did appear to be some slight thickening of the tissues around the gallbladder neck. The peritoneum was scored by the gallbladder neck. Dissection was carried through the pericholecystic tissues. The cystic duct was clearly identified and was dissected circumferentially. There was a small arterial branch noted just adjacent to the superior aspect of the cystic duct. A second arterial branch was identified slightly higher and along the medial wall of the gallbladder. This was clipped and divided. The cystic duct and the remaining artery were then also clipped with Hem-o-devon clips and divided. The gallbladder was then dissected free from the gallbladder bed using cautery dissection. The gallbladder was placed in an Endopouch. The right upper quadrant was inspected. A minimal amount of blood was absorbed into a Cottonoid and this was then removed. Final inspection showed no evidence of bleeding or bile leak. I then returned to the patients bedside. The robot was undocked and the instruments removed. The patient was returned to a flat position. The abdomen was deflated and the trocars were removed. The gallbladder was recovered through the supraumbilical site. It was necessary to extent the fascial incision slightly to accomplish this. The fascia was then closed with interrupted simple sutures of 2-0 Vicryl. The gallbladder clearly contained several angular stones 1 cm to 1.5 cm in size. The skin incisions were all closed with buried 4-0 Vicryl and Steri- Strips. Light dressings were applied. The patient tolerated the procedure well. He was awakened in the operating room, extubated and moved to the recovery room in stable condition. JAYLENE
== END 2020-04-03 11:45 | disposition home or self-care (01) ==
LOC: M SDC 06:12
PROVIDERS: ATTEND Surgery
DX: K80.10 Calculus of gallbladder with chronic cholecystitis without obstruction (principal); E78.5 Hyperlipidemia, unspecified; K44.9 Diaphragmatic hernia without obstruction or gangrene; K21.9 Gastro-esophageal reflux disease without esophagitis; F41.9 Anxiety disorder, unspecified; Z79.82 Long term (current) use of aspirin; Z79.899 Other long term (current) drug therapy
CPT/HCPCS: 47562; 88304; J0131; J1100; J2250; J2405; J2765; J3010; S2900

== ENCOUNTER → 2020-06-03 | Outpatient (CLI) | payer MEDICARE, OTHER ==
[~2020-06-03] MED LIST changes: +CICL8SOL3; +CLIN1SOL; +D31000TA2 PO; +ESSETAB4 PO; +FLAX10008 PO; +NORC1TAB7 PO; +OMEP-218
== END ==
LOC: M LABSMTC 08:24
PROVIDERS: ATTEND Anesthesiology
DX: Z01.812 Encounter for preprocedural laboratory examination (principal); Z20.828 Contact with and (suspected) exposure to other viral communicable diseases

== ENCOUNTER 2020-06-08 11:03 | Day surgery (SDC) | payer MEDICARE, OTHER ==
[~2020-06-08] VITALS: Ht 175.3 cm; Wt 74.4 kg
[~2020-06-08 11:03] MED LIST changes: +LR 1,000 ML IV ONE; +NS 1,000 ML IV ONE
[2020-06-08] MEDS ORDERED: CARA1TAB6 PO (11:19)
[2020-06-08] MEDS ORDERED: MIDAZOLAM INJ 2MG/2ML VIAL (J2250 PER 1MG) As Ordered ONE (14:02)
[2020-06-08] MEDS ORDERED: ROCURONIUM BROMIDE 50 MG/5 ML VIAL As Ordered ONE (14:02)
[2020-06-08] MEDS ORDERED: fentaNYL 100 MCG/2 ML INJECTION (J3010) As Ordered ONE (14:02)
[2020-06-08] MEDS ORDERED: LIDOCAINE 2% 100MG/5ML SDV (FOR ANES.) As Ordered ONE (14:02)
[2020-06-08] MEDS ORDERED: propofoL 200 MG/20 ML VIAL As Ordered ONE (14:03)
[2020-06-08] MEDS ORDERED: ONDANSETRON 4MG/2ML VIAL As Ordered ONE (14:03)
[2020-06-08] MEDS ORDERED: dexameTHASONE 4 MG/ML 1ML VIAL (J1100 PER 1MG) As Ordered ONE (14:03)
[2020-06-08] MEDS ORDERED: ISOVUE-300 61% 50ML VIAL As Ordered ONE (14:31)
[2020-06-08] MEDS ORDERED: PHENYLephrine HCL 500 MCG/5 ML (100MCG/ML) SYRINGE (J2370) As Ordered ONE (15:46)
[2020-06-08] MEDS ORDERED: SUGAMMADEX SODIUM 500 MG/5 ML VIAL (BRIDION) As Ordered ONE (15:54)
--- NOTE | 2020-06-08 16:25 | ROOR ---
Patient Name: Rony Grimes Procedure Date: 06/08/2020 2:28 PM Date of : 1950 Age: 69 Room: Main OR Gender: Male Note Status: Finalized Procedure: ERCP Indications: Bile duct stone(s), Biliary stent removal Providers: Claudio CALVIN MD Referring MD: Keyon Palacios MD Requesting Provider: Medicines: Monitored Anesthesia Care, General Anesthesia Complications: No immediate complications. Procedure: Pre-Anesthesia Assessment: - The heart rate, respiratory rate, oxygen saturations, blood pressure, adequacy of pulmonary ventilation, and response to care were monitored throughout the procedure. The Duodenoscope was introduced through the mouth, and advanced to the duodenum and used to inject contrast into the bile duct. The ERCP was accomplished without difficulty. The patient tolerated the procedure well. Findings: A biliary stent was visible on the financial cost analyst film. The esophagus was successfully intubated under direct vision without detailed examination of the pharynx, larynx, and associated structures, and upper GI tract. The upper GI tract was grossly normal. One temporary stent originating in the biliary tree was emerging from the major papilla. One stent was removed from the biliary tree using a snare. The major papilla was open from a previous sphincterotomy. A wire was passed into the biliary tree. The bile duct was then deeply cannulated over the guidewire. Contrast was injected. I personally interpreted the bile duct images. Ductal flow of contrast was adequate. Image quality was adequate. Opacification of the entire biliary tree except for the gallbladder was successful. The maximum diameter of the ducts was 9 mm. The lower third of the main bile duct contained two stones, the largest of which was 9 mm in diameter. The biliary tree was swept with a 9 mm balloon starting at the bifurcation. One stone was removed. One stone remained. The biliary sphincterotomy was extended to a total of 9 mm in length with a traction (standard) sphincterotome using ERBE electrocautery. There was no post-sphincterotomy bleeding. The biliary tree was swept with a 9 mm balloon starting at the bifurcation. All stones were removed. Impression: - One stent was removed from the biliary tree. - Choledocholithiasis was found. - A biliary sphincterotomy was performed. - The biliary tree was swept with a 9-12 mm balloon. - Complete removal of both stones was successful. All stones were removed. Recommendation: - Observe patient's clinical course. - Patient has a contact number available for emergencies. The signs and symptoms of potential delayed complications were discussed with the patient. Return to normal activities tomorrow. Written discharge instructions were provided to the patient. - The patient will be observed post-procedure, until all discharge criteria are met. - Discharge patient to home. Procedure Code(s): --- Professional --- 33445, Endoscopic retrograde cholangiopancreatography (ERCP); with removal of foreign body(s) or stent(s) from biliary/pancreatic duct(s) 89669, Endoscopic retrograde cholangiopancreatography (ERCP); with removal of calculi/debris from biliary/pancreatic duct(s) 22600, Endoscopic retrograde cholangiopancreatography (ERCP); with sphincterotomy/papillotomy Diagnosis Code(s): --- Professional --- K83.8, Other specified diseases of biliary tract Z46.59, Encounter for fitting and adjustment of other gastrointestinal appliance and device K80.50, Calculus of bile duct without cholangitis or cholecystitis without obstruction Z96.89, Presence of other specified functional implants CPT copyright 2019 [employer]. All rights reserved. The codes documented in this report are preliminary and upon auditing coder review may be revised to meet current compliance requirements. Claudio Calvin MD Claudio CALVIN MD 06/08/2020 4:25:31 PM Electronically signed by Claudio CALVIN MD Number of Addenda: 0 Note Initiated On: 06/08/2020 2:28 PM Estimated Blood Loss: Estimated blood loss: none.
[2020-06-08] MEDS ORDERED: METOCLOPRAMIDE INJ 10MG/2ML VIAL (J2765 PER 1) IV PRN (16:30)
[2020-06-08] MEDS ORDERED: fentaNYL 100 MCG/2 ML INJECTION (J3010) IV PRN (16:30)
[2020-06-08] MEDS ORDERED: LR 1,000 ML IV SCH (16:30)
[2020-06-08] MEDS ORDERED: ONDANSETRON 4MG/2ML VIAL IV PRN (16:30)
[2020-06-08] MEDS ORDERED: oxyCODONE 5MG TAB PO PRN (16:30)
--- NOTE | 2020-06-08 16:36 | REP ---
INDICATION: COMMON BILE DUCT STONE,STENT REMOVAL. COMPARISON: None. TECHNIQUE: Seventeen views. 4 minutes 2 seconds of fluoroscopy time is reported. FINDINGS: A sequence of 17 last image hold fluoroscopically obtained spot radiographs of the abdomen document endoscopic cannulation, contrast injection of the common bile duct. No definite biliary tract abnormality. IMPRESSION: ERCP procedural imaging. <Electronically signed by Arthur Gentile > 06/08/20 0551
[2020-06-08 17:30] VITALS: BP 160/78
== END 2020-06-08 17:50 | disposition home or self-care (01) ==
LOC: M SDC 11:03
PROVIDERS: ATTEND Internal Medicine Gastroenterology
DX: K80.50 Calculus of bile duct without cholangitis or cholecystitis without obstruction (principal); Z96.89 Presence of other specified functional implants; K83.8 Other specified diseases of biliary tract; Z46.59 Encounter for fitting and adjustment of other gastrointestinal appliance and device; E78.5 Hyperlipidemia, unspecified; R01.1 Cardiac murmur, unspecified; K21.9 Gastro-esophageal reflux disease without esophagitis; K44.9 Diaphragmatic hernia without obstruction or gangrene; F41.9 Anxiety disorder, unspecified; N40.0 Benign prostatic hyperplasia without lower urinary tract symptoms; Z79.82 Long term (current) use of aspirin; Z79.899 Other long term (current) drug therapy
CPT/HCPCS: 43262; 43264; 43275; 74330; J1100; J2250; J2370; J2405; J3010; Q9967

== ENCOUNTER → 2020-06-18 | Outpatient (REF) | payer MEDICARE, OTHER ==
[~2020-06-18] MED LIST changes: +CARA1TAB6 PO; -LR 1,000 ML IV ONE; -NS 1,000 ML IV ONE
[2020-06-18 14:59] LABS: HEMATOCRIT 39.5 % (42.0-52.0); MEAN CORPUSCULAR HEMOGLOBIN 33.7 pg (27.0-33.0); MEAN CORPUSCULAR HGB CONC 35.4 g/dl (32.0-36.5); PLATELET COUNT, AUTOMATED 246 10^3/uL (150-450); RED BLOOD COUNT 4.16 10^6/uL (4.30-6.10); WHITE BLOOD COUNT 5.6 10^3/uL (4.0-10.0)
[2020-06-18 15:34] LABS: ALBUMIN 3.7 GM/DL (3.2-5.2); ALT/SGPT 39 U/L (12-78); BILIRUBIN,TOTAL 0.4 MG/DL (0.2-1.0); BLOOD UREA NITROGEN 10 MG/DL (7-18); CALCIUM LEVEL 9.2 MG/DL (8.8-10.2); CARBON DIOXIDE LEVEL 33 MEQ/L (21-32); CHLORIDE LEVEL 106 MEQ/L (98-107); CHOLESTEROL LEVEL 160 MG/DL (<200); CREATININE FOR GFR 1.07 MG/DL (0.70-1.30); FREE T4 0.76 NG/DL (0.76-1.46); GLOMERULAR FILTRATION RATE > 60.0 (>42); GLUCOSE, FASTING 91 MG/DL (70-100); HDL CHOLESTEROL 38 MG/DL (>40); LDL CHOLESTEROL 99 MG/DL (<100); NON-HDL-C 122 MG/DL; POTASSIUM SERUM 4.7 MEQ/L (3.5-5.1); SODIUM LEVEL 142 MEQ/L (136-145); TOTAL PROTEIN 7.3 GM/DL (6.4-8.2); TRIGLYCERIDES LEVEL 116 MG/DL (<150)
== END ==
LOC: M PLALAB 09:43
PROVIDERS: ATTEND Family Medicine
DX: K22.70 Barrett's esophagus without dysplasia (principal); E78.5 Hyperlipidemia, unspecified; E03.9 Hypothyroidism, unspecified; Z12.5 Encounter for screening for malignant neoplasm of prostate
CPT/HCPCS: 36415; 80053; 80061; 84439; 84443; 85027; G0103

== ENCOUNTER → 2020-07-13 | Outpatient (CLI) | payer SELFPAY | LOC: M LABSMTC 14:02 | PROVIDERS: ATTEND Pediatrics | DX: Z20.822 Contact with and (suspected) exposure to COVID-19 (principal) ==

== ENCOUNTER → 2020-07-25 | Outpatient (CLI) | payer MEDICARE, OTHER ==
[~2020-07-25] MED LIST changes: -OMEP-218; +OMEP-218 PO
== END ==
LOC: M LABSMTC 11:01
PROVIDERS: ATTEND Anesthesiology
DX: Z01.812 Encounter for preprocedural laboratory examination (principal); Z20.822 Contact with and (suspected) exposure to COVID-19

== ENCOUNTER 2020-07-30 06:47 | Day surgery (SDC) | payer MEDICARE, OTHER ==
[~2020-07-30] VITALS: Ht 177.8 cm; Wt 73.5 kg
[2020-07-30] MEDS ORDERED: NS 1,000 ML IV ONE (07:00)
[2020-07-30] MEDS ORDERED: LIDOCAINE 2% 100MG/5ML SDV (FOR ANES.) As Ordered ONE (07:23)
[2020-07-30] MEDS ORDERED: propofoL 200 MG/20 ML VIAL As Ordered ONE (07:23)
[2020-07-30] MEDS ORDERED: fentaNYL 100 MCG/2 ML INJECTION (J3010) As Ordered ONE (07:23)
--- NOTE | 2020-07-30 08:01 | ROOR ---
Patient Name: Rony Grimes Procedure Date: 07/30/2020 7:09 AM Date of : 1950 Age: 69 Room: [facility] Gender: Male Note Status: Finalized Procedure: Upper Endoscopy + Biopsies Indications: Heartburn, Exclusion of Asencio's esophagus Providers: Chance Benedict MD Referring MD: Keyon Palacios MD Requesting Provider: Medicines: Monitored Anesthesia Care Complications: No immediate complications. Procedure: Pre-Anesthesia Assessment: - The heart rate, respiratory rate, oxygen saturations, blood pressure, adequacy of pulmonary ventilation, and response to care were monitored throughout the procedure. The Endoscope was introduced through the mouth, and advanced to the second part of duodenum. The upper GI endoscopy was accomplished without difficulty. The patient tolerated the procedure well. Findings: The Z-line was irregular and was found 40 cm from the incisors. Multiple biopsies were obtained with cold forceps for evaluation to rule out Asencio's Esophagus randomly at the gastroesophageal junction. No other significant abnormalities were identified in a careful examination of the stomach. The exam of the duodenum was otherwise normal. Impression: - Z-line irregular, 40 cm from the incisors. - Multiple biopsies were obtained at the gastroesophageal junction. - The examination was otherwise normal. Recommendation: - Patient has a contact number available for emergencies. The signs and symptoms of potential delayed complications were discussed with the patient. Return to normal activities tomorrow. Written discharge instructions were provided to the patient. - High fiber diet. - Discharge patient to home. - Follow an antireflux regimen. - Continue present medications. - Await pathology results. - Return to referring physician. - Telephone GI clinic for pathology results in 1 week. - The findings and recommendations were discussed with the patient. Procedure Code(s): --- Professional --- 04449, Esophagogastroduodenoscopy, flexible, transoral; with biopsy, single or multiple Diagnosis Code(s): --- Professional --- K22.8, Other specified diseases of esophagus R12, Heartburn CPT copyright 2019 [employer]. All rights reserved. The codes documented in this report are preliminary and upon remote inpatient coder review may be revised to meet current compliance requirements. Chance Benedict MD Chance Benedict MD 07/30/2020 8:00:37 AM Electronically signed by Chance Benedict MD Number of Addenda: 0 Note Initiated On: 07/30/2020 7:09 AM Estimated Blood Loss: Estimated blood loss: none.
--- NOTE | 2020-07-30 08:20 | ROOR ---
Patient Name: Rony Grimes Procedure Date: 07/30/2020 7:11 AM Date of : 1950 Age: 69 Room: [facility] Gender: Male Note Status: Finalized Procedure: Total Colonoscopy to Cecum + Cold Snare Polypectomy Indications: Screening for colorectal malignant neoplasm Providers: Chance Benedict MD Referring MD: Keyon Palacios MD Requesting Provider: Medicines: Monitored Anesthesia Care Complications: No immediate complications. Procedure: Pre-Anesthesia Assessment: - The heart rate, respiratory rate, oxygen saturations, blood pressure, adequacy of pulmonary ventilation, and response to care were monitored throughout the procedure. The Colonoscope was introduced through the anus and advanced to the cecum, identified by appendiceal orifice and ileocecal valve. The colonoscopy was performed without difficulty. The patient tolerated the procedure well. The quality of the bowel preparation was excellent. Findings: The perianal and digital rectal examinations were normal. Non-bleeding internal hemorrhoids were found during retroflexion. The hemorrhoids were small and Grade I (internal hemorrhoids that do not prolapse). A small polyp was found at 40 cm proximal to the anus. The polyp was sessile. The polyp was removed with a cold snare. Resection and retrieval were complete. The exam was otherwise without abnormality on direct and retroflexion views. Impression: - Non-bleeding internal hemorrhoids. - One small polyp at 40 cm proximal to the anus, removed with a cold snare. Resected and retrieved. - The examination was otherwise normal on direct and retroflexion views. - The exam was otherwise normal to the cecum. Recommendation: - Patient has a contact number available for emergencies. The signs and symptoms of potential delayed complications were discussed with the patient. Return to normal activities tomorrow. Written discharge instructions were provided to the patient. - High fiber diet. - Discharge patient to home. - Continue present medications. - Await pathology results. - Telephone GI clinic for pathology results in 1 week. - Repeat colonoscopy in 5 years for surveillance based on pathology results. - Return to referring physician. - The findings and recommendations were discussed with the patient. Procedure Code(s): --- Professional --- 86138, Colonoscopy, flexible; with removal of tumor(s), polyp(s), or other lesion(s) by snare technique Diagnosis Code(s): --- Professional --- Z12.11, Encounter for screening for malignant neoplasm of colon K64.0, First degree hemorrhoids K63.5, Polyp of colon CPT copyright 2019 [employer]. All rights reserved. The codes documented in this report are preliminary and upon student driving instructor review may be revised to meet current compliance requirements. Chance Benedict MD Chance Benedict MD 07/30/2020 8:19:43 AM Electronically signed by Chance Benedict MD Number of Addenda: 0 Note Initiated On: 07/30/2020 7:11 AM Estimated Blood Loss: Estimated blood loss: none.
[2020-07-30 08:45] VITALS: BP 128/79
== END 2020-07-30 08:57 | disposition home or self-care (01) ==
LOC: M OPP 06:47
PROVIDERS: ATTEND Internal Medicine Gastroenterology
DX: Z12.11 Encounter for screening for malignant neoplasm of colon (principal); R12 Heartburn; D12.6 Benign neoplasm of colon, unspecified; K64.0 First degree hemorrhoids; D13.0 Benign neoplasm of esophagus; K22.8 Other specified diseases of esophagus; E78.5 Hyperlipidemia, unspecified; M19.90 Unspecified osteoarthritis, unspecified site; F41.9 Anxiety disorder, unspecified; Z79.82 Long term (current) use of aspirin; Z79.899 Other long term (current) drug therapy
CPT/HCPCS: 43239; 45385; 88305; J3010

== ENCOUNTER → 2021-06-12 | Outpatient (REF) | payer MEDICARE, OTHER ==
[~2021-06-12] MED LIST changes: +FAMO10TA50 PO; -FAMO1TAB25 PO
[2021-06-12 12:52] LABS: HEMATOCRIT 39.3 % (42.0-52.0); HEMOGLOBIN 14.3 g/dl (13.5-17.5); MEAN CORPUSCULAR HEMOGLOBIN 35.1 pg (27.0-33.0); MEAN CORPUSCULAR HGB CONC 36.4 g/dl (32.0-36.5); MEAN CORPUSCULAR VOLUME 96.6 fl (80.0-96.0); PLATELET COUNT, AUTOMATED 207 10^3/uL (150-450); RED BLOOD COUNT 4.07 10^6/uL (4.30-6.10); WHITE BLOOD COUNT 5.8 10^3/uL (4.0-10.0)
[2021-06-12 13:30] LABS: ALBUMIN 3.8 GM/DL (3.2-5.2); ALT/SGPT 31 U/L (12-78); BILIRUBIN,TOTAL 0.7 MG/DL (0.2-1.0); BLOOD UREA NITROGEN 14 MG/DL (7-18); CALCIUM LEVEL 9.6 MG/DL (8.8-10.2); CARBON DIOXIDE LEVEL 33 MEQ/L (21-32); CHLORIDE LEVEL 105 MEQ/L (98-107); CHOLESTEROL LEVEL 178 MG/DL (<200); CREATININE FOR GFR 0.98 MG/DL (0.70-1.30); FREE T4 0.77 NG/DL (0.76-1.46); GLOMERULAR FILTRATION RATE > 60.0 (>42); GLUCOSE, FASTING 95 MG/DL (70-100); HDL CHOLESTEROL 40 MG/DL (>40); LDL CHOLESTEROL 112 MG/DL (<100); NON-HDL-C 138 MG/DL; POTASSIUM SERUM 4.5 MEQ/L (3.5-5.1); SODIUM LEVEL 141 MEQ/L (136-145); TOTAL PROTEIN 7.6 GM/DL (6.4-8.2); TRIGLYCERIDES LEVEL 131 MG/DL (<150)
== END ==
LOC: M SFHCADAM 09:15
PROVIDERS: ATTEND Family Medicine
DX: K22.70 Barrett's esophagus without dysplasia (principal); E78.5 Hyperlipidemia, unspecified; E03.9 Hypothyroidism, unspecified; Z12.5 Encounter for screening for malignant neoplasm of prostate
CPT/HCPCS: 80053; 80061; 84439; 84443; 85027; G0103; G0463

== ENCOUNTER → 2021-09-10 | Outpatient (REF) | payer MEDICARE, OTHER ==
[~2021-09-10] MED LIST changes: +CICL6.6S; -CICL8SOL3; -D31000TA2 PO; +OMEP-173 PO; -OMEP-218 PO; +VITA100093 PO
[2021-09-10 17:19] LABS: FREE T4 0.73 NG/DL (0.76-1.46)
[2021-09-10 17:20] LABS: THYROID PEROXIDASE ANTIBODY < 28.0 U/ML (<60.0)
== END ==
LOC: M SFHCADAM 12:05
PROVIDERS: ATTEND Family Medicine
DX: N52.9 Male erectile dysfunction, unspecified (principal); E03.9 Hypothyroidism, unspecified

== ENCOUNTER → 2021-10-24 | Outpatient (REF) | payer MEDICARE, OTHER ==
[2021-10-24 16:46] LABS: BLOOD UREA NITROGEN 16 MG/DL (7-18); CALCIUM LEVEL 10.2 MG/DL (8.8-10.2); CARBON DIOXIDE LEVEL 31 MEQ/L (21-32); CHLORIDE LEVEL 104 MEQ/L (98-107); CREATININE FOR GFR 0.94 MG/DL (0.70-1.30); GLOMERULAR FILTRATION RATE > 60.0 (>42); GLUCOSE, FASTING 110 MG/DL (70-100); POTASSIUM SERUM 4.6 MEQ/L (3.5-5.1); SODIUM LEVEL 140 MEQ/L (136-145)
== END ==
LOC: M SFHCADAM 09:50
PROVIDERS: ATTEND Family Medicine
DX: Z01.818 Encounter for other preprocedural examination (principal); E78.5 Hyperlipidemia, unspecified

== ENCOUNTER → 2021-10-24 | Outpatient (CLI) | payer MEDICARE, OTHER | LOC: M ADAMS 09:58 | PROVIDERS: ATTEND Family Medicine | DX: Z01.818 Encounter for other preprocedural examination (principal) ==

== ENCOUNTER 2022-01-07 11:11 | Emergency (ER) | payer MEDICARE, OTHER ==
[~2022-01-07] VITALS: Ht 172.7 cm; Wt 77.2 kg
[2022-01-07 11:12] VITALS: BP 139/84
[2022-01-07] MEDS ORDERED: FINA5TAB2 (11:27)
[2022-01-07] MEDS ORDERED: BOOSTRIX/ADACEL VACCINE (DIPHTH/PERTUSS/ACELL/TETANUS) 0.5ML SYR IM ONE (13:00)
[2022-01-07] MEDS ORDERED: CEPH500C PO (13:28)
[2022-01-07] MEDS ORDERED: NEOSPORIN OINT 0.9 GM PKT TOP ONE (13:30)
== END 2022-01-07 13:48 | disposition home or self-care (01) ==
LOC: M ED 11:11
DX: S61.213A Laceration without foreign body of left middle finger without damage to nail, initial encounter (principal); S60.022A Contusion of left index finger without damage to nail, initial encounter; S60.042A Contusion of left ring finger without damage to nail, initial encounter; X58.XXXA Exposure to other specified factors, initial encounter; Y92.018 Other place in single-family (private) house as the place of occurrence of the external cause; E78.5 Hyperlipidemia, unspecified; F41.9 Anxiety disorder, unspecified; Z79.899 Other long term (current) drug therapy; Z79.82 Long term (current) use of aspirin

== ENCOUNTER → 2022-01-24 | Outpatient (CLI) | payer MEDICARE, OTHER ==
[~2022-01-24] MED LIST changes: +CEPH500C PO; +FINA5TAB2
== END ==
LOC: M ADAMS 11:00
PROVIDERS: ATTEND Physician Assistant
DX: S62.605A Fracture of unspecified phalanx of left ring finger, initial encounter for closed fracture (principal)

== ENCOUNTER → 2022-06-12 | Outpatient (CLI) | payer MEDICARE, OTHER | LOC: M ADAMS 10:07 | PROVIDERS: ATTEND Family Medicine | DX: U09.9 Post COVID-19 condition, unspecified (principal); R05.3 Chronic cough ==

== ENCOUNTER → 2022-06-12 | Outpatient (REF) | payer MEDICARE, OTHER ==
[2022-06-12 13:50] LABS: HEMATOCRIT 40.1 % (42.0-52.0); HEMOGLOBIN 14.1 g/dl (13.5-17.5); MEAN CORPUSCULAR HEMOGLOBIN 34.2 pg (27.0-33.0); MEAN CORPUSCULAR HGB CONC 35.2 g/dl (32.0-36.5); MEAN CORPUSCULAR VOLUME 97.3 fl (80.0-96.0); PLATELET COUNT, AUTOMATED 194 10^3/uL (150-450); RED BLOOD COUNT 4.12 10^6/uL (4.30-6.10); WHITE BLOOD COUNT 6.2 10^3/uL (4.0-10.0)
[2022-06-12 14:07] LABS: ALBUMIN 3.9 G/DL (3.2-5.2); ALKALINE PHOSPHATASE 61 U/L (46-116); ALT/SGPT 23 U/L (7.0-40); AST/SGOT 22 U/L (<34); BILIRUBIN,TOTAL 0.7 MG/DL (0.3-1.2); BLOOD UREA NITROGEN 21 MG/DL (9-23); CALCIUM LEVEL 9.8 MG/DL (8.3-10.6); CARBON DIOXIDE LEVEL 31 MMOL/L (20-31); CHLORIDE LEVEL 101 MMOL/L (98-107); CHOLESTEROL LEVEL 149 MG/DL (<200); CHOLESTEROL RISK RATIO 4.42 (<5); CREATININE FOR GFR 0.93 MG/DL (0.70-1.30); GLOMERULAR FILTRATION RATE > 60.0 (>42); GLUCOSE, FASTING 90 MG/DL (74-106); HDL CHOLESTEROL 33.7 MG/DL (>40); LDL CHOLESTEROL 84.1 MG/DL (<100); NON-HDL-C 115 MG/DL; POTASSIUM SERUM 4.3 MMOL/L (3.5-5.1); SODIUM LEVEL 140 MMOL/L (136-145); TOTAL PROTEIN 7.5 G/DL (5.7-8.2); TRIGLYCERIDES LEVEL 156 MG/DL (<150)
[2022-06-12 14:08] LABS: FREE T4 0.75 NG/DL (0.89-1.76); THYROID STIMULATING HORMONE 5.236 uIU/ML (0.55-4.78)
== END ==
LOC: M SFHCADAM 09:55
PROVIDERS: ATTEND Family Medicine
DX: E78.5 Hyperlipidemia, unspecified (principal); K22.70 Barrett's esophagus without dysplasia; E03.9 Hypothyroidism, unspecified; Z12.5 Encounter for screening for malignant neoplasm of prostate

== ENCOUNTER → 2022-08-06 | Outpatient (REF) | payer MEDICARE, OTHER ==
[2022-08-06 15:08] LABS: THYROID STIMULATING HORMONE 1.73 uIU/ML (0.55-4.78)
[2022-08-06 15:09] LABS: FREE T4 1.02 NG/DL (0.89-1.76)
== END ==
LOC: M SFHCADAM 08:57
PROVIDERS: ATTEND Family Medicine
DX: E03.9 Hypothyroidism, unspecified (principal)

== ENCOUNTER → 2022-10-15 | Outpatient (REF) | payer MEDICARE, OTHER | LOC: M SFHCADAM 12:29 | PROVIDERS: ATTEND Physician Assistant | DX: J00 Acute nasopharyngitis [common cold] (principal) ==

== ENCOUNTER → 2023-01-28 | Outpatient (REF) | payer MEDICARE, OTHER ==
[2023-01-28 13:26] LABS: BASO % 0.6 % (0.0-1.0); EOS # 0.4 10^3/uL (0.0-0.5); EOS % 5.9 % (0.0-3.0); HEMOGLOBIN 13.6 g/dl (13.5-17.5); LYMPH # 1.9 10^3/uL (1.5-5.0); MEAN CORPUSCULAR HEMOGLOBIN 32.7 pg (27.0-33.0); MEAN CORPUSCULAR HGB CONC 34.9 g/dl (32.0-36.5); MEAN CORPUSCULAR VOLUME 93.8 fl (80.0-96.0); MONO # 0.6 10^3/uL (0.0-0.8); MONO % 9.1 % (2.0-8.0); NEUTROPHILS # 3.4 10^3/uL (1.5-8.5); NEUTROPHILS % 54.1 % (36.0-66.0); PLATELET COUNT, AUTOMATED 222 10^3/uL (150-450); RED BLOOD COUNT 4.16 10^6/uL (4.30-6.10); WHITE BLOOD COUNT 6.2 10^3/uL (4.0-10.0)
== END ==
LOC: M SFHCADAM 09:22
PROVIDERS: ATTEND Family Medicine
DX: J40 Bronchitis, not specified as acute or chronic (principal)

== ENCOUNTER → 2023-01-28 | Outpatient (CLI) | payer MEDICARE, OTHER | LOC: M ADAMS 09:41 | PROVIDERS: ATTEND Family Medicine | DX: J40 Bronchitis, not specified as acute or chronic (principal) ==

== ENCOUNTER → 2023-02-16 | Outpatient (CLI) | payer MEDICARE, OTHER | LOC: M PLAIMG 13:20 | PROVIDERS: ATTEND Family Medicine | DX: R05.3 Chronic cough (principal) ==

== ENCOUNTER → 2023-04-20 | Outpatient (CLI) | payer MEDICARE, OTHER ==
[~2023-04-20] MED LIST changes: -LUNE3TAB36 PO; +LUNE3TAB50 PO
== END ==
LOC: M CARPUL 08:03
PROVIDERS: ATTEND Family Medicine
DX: I35.9 Nonrheumatic aortic valve disorder, unspecified (principal)

== ENCOUNTER → 2023-06-02 | Outpatient (REF) | payer MEDICARE, OTHER | LOC: M SFHCADAM 13:36 | PROVIDERS: ATTEND Family Medicine | DX: E78.5 Hyperlipidemia, unspecified (principal); K22.70 Barrett's esophagus without dysplasia; E03.9 Hypothyroidism, unspecified; Z12.5 Encounter for screening for malignant neoplasm of prostate; Z13.1 Encounter for screening for diabetes mellitus ==

== ENCOUNTER → 2023-06-03 | Outpatient (REF) | payer MEDICARE, OTHER ==
[2023-06-03 14:18] LABS: ALBUMIN 3.9 G/DL (3.2-5.2); ALKALINE PHOSPHATASE 61 U/L (46-116); ALT/SGPT 26 U/L (7.0-40); AST/SGOT 24 U/L (<34); BILIRUBIN,TOTAL 0.9 MG/DL (0.3-1.2); BLOOD UREA NITROGEN 16 MG/DL (9-23); CALCIUM LEVEL 9.6 MG/DL (8.3-10.6); CARBON DIOXIDE LEVEL 31 MMOL/L (20-31); CHLORIDE LEVEL 105 MMOL/L (98-107); CHOLESTEROL LEVEL 179 MG/DL (<200); CHOLESTEROL RISK RATIO 4.28 (<5); CREATININE FOR GFR 0.89 MG/DL (0.70-1.30); GLOMERULAR FILTRATION RATE > 60.0 (>42); GLUCOSE, FASTING 95 MG/DL (74-106); HDL CHOLESTEROL 41.8 MG/DL (>40); LDL CHOLESTEROL 115.2 MG/DL (<100); NON-HDL-C 137.2 MG/DL; POTASSIUM SERUM 4.4 MMOL/L (3.5-5.1); PSA SCREENING 0.22 NG/ML (< 4.00); SODIUM LEVEL 143 MMOL/L (136-145); TOTAL PROTEIN 7.4 G/DL (5.7-8.2); TRIGLYCERIDES LEVEL 110 MG/DL (<150)
[2023-06-03 14:22] LABS: THYROID STIMULATING HORMONE 2.452 uIU/ML (0.55-4.78)
[2023-06-03 14:24] LABS: FREE T4 0.88 NG/DL (0.89-1.76)
[2023-06-03 14:31] LABS: HEMATOCRIT 38.7 % (42.0-52.0); HEMOGLOBIN 14.1 g/dl (13.5-17.5); MEAN CORPUSCULAR HEMOGLOBIN 34.4 pg (27.0-33.0); MEAN CORPUSCULAR HGB CONC 36.4 g/dl (32.0-36.5); MEAN CORPUSCULAR VOLUME 94.4 fl (80.0-96.0); PLATELET COUNT, AUTOMATED 209 10^3/uL (150-450); WHITE BLOOD COUNT 6.3 10^3/uL (4.0-10.0)
== END ==
LOC: M SFHCADAM 09:06
PROVIDERS: ATTEND Family Medicine
DX: E78.5 Hyperlipidemia, unspecified (principal); K22.70 Barrett's esophagus without dysplasia; E03.9 Hypothyroidism, unspecified; Z12.5 Encounter for screening for malignant neoplasm of prostate; Z13.1 Encounter for screening for diabetes mellitus; Z79.82 Long term (current) use of aspirin; Z79.1 Long term (current) use of non-steroidal anti-inflammatories (NSAID); Z79.899 Other long term (current) drug therapy
CPT/HCPCS: 80053; 80061; 83036; 84439; 84443; 85027; G0103

== ENCOUNTER → 2023-10-22 | Outpatient (REF) | payer MEDICARE, OTHER ==
[2023-10-22 13:25] LABS: HEMATOCRIT 37.6 % (42.0-52.0); HEMOGLOBIN 13.6 g/dl (13.5-17.5); MEAN CORPUSCULAR HEMOGLOBIN 34.6 pg (27.0-33.0); MEAN CORPUSCULAR HGB CONC 36.2 g/dl (32.0-36.5); MEAN CORPUSCULAR VOLUME 95.7 fl (80.0-96.0); PLATELET COUNT, AUTOMATED 210 10^3/uL (150-450); RED BLOOD COUNT 3.93 10^6/uL (4.30-6.10); WHITE BLOOD COUNT 6.2 10^3/uL (4.0-10.0)
[2023-10-22 13:55] LABS: ALBUMIN 3.7 G/DL (3.2-5.2); ALKALINE PHOSPHATASE 65 U/L (46-116); ALT/SGPT 26 U/L (7.0-40); AST/SGOT 29 U/L (<34); BILIRUBIN,TOTAL 0.7 MG/DL (0.3-1.2); BLOOD UREA NITROGEN 15 MG/DL (9-23); CARBON DIOXIDE LEVEL 32 MMOL/L (20-31); CHLORIDE LEVEL 105 MMOL/L (98-107); CHOLESTEROL LEVEL 148 MG/DL (<200); CHOLESTEROL RISK RATIO 4.26 (<5); CREATININE FOR GFR 0.91 MG/DL (0.70-1.30); GLOMERULAR FILTRATION RATE > 60.0 (>42); GLUCOSE, FASTING 85 MG/DL (74-106); HDL CHOLESTEROL 34.7 MG/DL (>40); LDL CHOLESTEROL 88.5 MG/DL (<100); NON-HDL-C 113.3 MG/DL; SODIUM LEVEL 140 MMOL/L (136-145); TRIGLYCERIDES LEVEL 124 MG/DL (<150)
[2023-10-22 13:57] LABS: FREE T4 0.94 NG/DL (0.89-1.76); THYROID STIMULATING HORMONE 0.938 uIU/ML (0.55-4.78)
== END ==
LOC: M LAB REF 12:47 → M LABDRWAD 12:47
PROVIDERS: ATTEND Family Medicine
DX: E03.9 Hypothyroidism, unspecified (principal); R68.83 Chills (without fever)

== ENCOUNTER → 2023-12-28 | Outpatient (CLI) | payer MEDICARE, OTHER ==
[2023-12-28 12:35] LABS: HEMATOCRIT 43.7 % (42.0-52.0); HEMOGLOBIN 14.6 g/dl (13.5-17.5); MEAN CORPUSCULAR HEMOGLOBIN 31.6 pg (27.0-33.0); MEAN CORPUSCULAR HGB CONC 33.4 g/dl (32.0-36.5); MEAN CORPUSCULAR VOLUME 94.6 fl (80.0-96.0); PLATELET COUNT, AUTOMATED 224 10^3/uL (150-450); RED BLOOD COUNT 4.62 10^6/uL (4.30-6.10); WHITE BLOOD COUNT 8.6 10^3/uL (4.0-10.0)
[2023-12-28 12:43] LABS: ALBUMIN 3.7 G/DL (3.2-5.2); ALKALINE PHOSPHATASE 68 U/L (46-116); ALT/SGPT 25 U/L (7.0-40); AST/SGOT 16 U/L (<34); BILIRUBIN,TOTAL 0.5 MG/DL (0.3-1.2); BLOOD UREA NITROGEN 18 MG/DL (9-23); CALCIUM LEVEL 9.7 MG/DL (8.3-10.6); CARBON DIOXIDE LEVEL 31 MMOL/L (20-31); CHLORIDE LEVEL 105 MMOL/L (98-107); CHOLESTEROL LEVEL 183 MG/DL (<200); CHOLESTEROL RISK RATIO 3.96 (<5); CREATININE FOR GFR 0.98 MG/DL (0.70-1.30); GLOMERULAR FILTRATION RATE > 60.0 (>42); GLUCOSE, FASTING 92 MG/DL (74-106); HDL CHOLESTEROL 46.1 MG/DL (>40); LDL CHOLESTEROL 121.3 MG/DL (<100); NON-HDL-C 136.9 MG/DL; POTASSIUM SERUM 4.9 MMOL/L (3.5-5.1); SODIUM LEVEL 140 MMOL/L (136-145); THYROID STIMULATING HORMONE 0.832 uIU/ML (0.55-4.78); TOTAL PROTEIN 7.1 G/DL (5.7-8.2); TRIGLYCERIDES LEVEL 78 MG/DL (<150)
== END ==
LOC: M PLALAB 09:31
PROVIDERS: ATTEND Family Medicine
DX: E03.9 Hypothyroidism, unspecified (principal)

== ENCOUNTER → 2024-03-15 | Outpatient (CLI) | payer MEDICARE, OTHER | LOC: M ADAMS 12:04 | PROVIDERS: ATTEND Family Medicine | DX: M54.50 Low back pain, unspecified (principal) ==

== ENCOUNTER → 2024-06-07 | Outpatient (REF) | payer MEDICARE, OTHER ==
[2024-06-07 18:16] LABS: PSA SCREENING 0.3 NG/ML (< 4.00)
[2024-06-07 18:20] LABS: THYROID STIMULATING HORMONE 0.707 uIU/ML (0.55-4.78)
[2024-06-07 18:21] LABS: FREE T4 1.03 NG/DL (0.89-1.76)
== END ==
LOC: M SFHCADAM 13:36
PROVIDERS: ATTEND Family Medicine
DX: E03.9 Hypothyroidism, unspecified (principal); Z12.5 Encounter for screening for malignant neoplasm of prostate
CPT/HCPCS: 84439; 84443; G0103

== ENCOUNTER → 2024-10-28 | Outpatient (CLI) | payer MEDICARE, OTHER ==
[~2024-10-28] MED LIST changes: -AMBI10TA PO; +ZOLP-533 PO
== END ==
LOC: M WUC 11:10
PROVIDERS: ATTEND Physician Assistant
DX: S50.12XA Contusion of left forearm, initial encounter (principal); Y93.9 Activity, unspecified; Y92.9 Unspecified place or not applicable

== ENCOUNTER → 2025-01-26 | Outpatient (REF) | payer MEDICARE, OTHER ==
[2025-01-26 13:11] LABS: BASO # 0.1 10^3/uL (0.0-0.2); BASO % 1.3 % (0.0-1.0); EOS # 0.5 10^3/uL (0.0-0.5); EOS % 7.0 % (0.0-3.0); LYMPH # 2.1 10^3/uL (1.5-5.0); LYMPH % 33.0 % (24.0-44.0); MONO # 0.7 10^3/uL (0.0-0.8); MONO % 11.4 % (2.0-8.0); NEUTROPHILS # 3.0 10^3/uL (1.5-8.5); NEUTROPHILS % 47.0 % (36.0-66.0); PLATELET COUNT, AUTOMATED 189 10^3/uL (150-450)
[2025-01-26 13:16] LABS: IRON (FE) 82.0 UG/DL (65-175); PERCENT SATURATION 26.1 % (19.7-50.0)
== END ==
LOC: M SFHCADAM 08:42
PROVIDERS: ATTEND Physician Assistant
DX: D64.9 Anemia, unspecified (principal)